=== PATIENT | female | born 1965 | race American Indian/Alaskan Native ===

== ENCOUNTER 2017-06-28 18:47 | Emergency (ER) | payer MEDICAID ==
[2017-06-29] MEDS ORDERED: CLEOCIN 900 MG/50 mL 900 MG/50 ML BAG IV ONE (01:32)
[2017-06-29] MEDS ORDERED: NACL 0.9% 1000 ML 1,000 ML IV ONE (01:32)
[2017-06-29] MEDS ORDERED: FLAGYL 500 MG/100 ML 500 MG/100 ML BAG IV SCH (02:00)
[2017-06-29 02:17] LABS: Basophils % (Auto) 0.3 % (0.0-1.8); Eosinophils % (Auto) 0.7 % (0.0-4.3); Hematocrit 35.4 % (30.3-42.9); Hemoglobin 12.1 gm/dl (10.1-14.3); Mean Corpuscular HGB Conc 34 % (30-34); Mean Corpuscular Hemoglobin 33 pg (28-32); Mean Corpuscular Volume 96 fl (79-97); Platelet Count 194 K/mm3 (140-440); Red Blood Count 3.68 M/mm3 (3.65-5.03); Red Cell Distribution Width 13.2 % (13.2-15.2); White Blood Count 12.1 K/mm3 (4.5-11.0)
[2017-06-29 02:23] LABS: Albumin 3.8 g/dL (3.9-5); Albumin/Globulin Ratio 1.1 %; Alkaline Phosphatase 197 units/L (35-129); Blood Urea Nitrogen 12 mg/dL (7-17); Calcium 8.9 mg/dL (8.4-10.2); Carbon Dioxide 20 mmol/L (22-30); Chloride 95.4 mmol/L (98-107); Glucose 90 mg/dL (65-100); Sodium 133 mmol/L (137-145); Total Protein 7.2 g/dL (6.3-8.2)
[2017-06-29 02:48] LABS: Alanine Aminotransferase 59 units/L (7-56); Anion Gap 22 mmol/L; Potassium 4.7 mmol/L (3.6-5.0)
--- NOTE | 2017-06-29 04:02 | Cat Scan Report ---
FINAL REPORT EXAM: CT FACIAL BONES W CON HISTORY: dental abscess with facial swelling TECHNIQUE: Routine imaging was obtained of the facial bones following intravenous injection of IV contrast. Coronal and sagittal reconstructions were obtained. FINDINGS: There is soft tissue swelling and subcutaneous edema overlying the anterior wall of the left max sinus extending to the hard palate. There is a 7.2 millimeter by 14.5 millimeter low-density area abutting the left side of the hard palate adjacent to left upper 1st and 2nd incisors. This compatible with a small abscess. No definite erosive changes of the hard palate is seen. There are though apical lucencies associated with both left upper incisors. The sinuses reveal extensive mucosal thickening and secretions in the left maxillary sinus. The remaining sinuses are clear. The intraorbital structures are well-maintained. There is several small benign-appearing lymph nodes in the internal jugular chains bilaterally. IMPRESSION: Small subcutaneous abscess abutting the left side of the hard palate adjacent to the left upper 1st and 2nd incisors as described along with generalized cellulitis. Apical lucencies involving both the 1st and 2nd left upper incisors compatible with underlying dental disease. No evidence of osteomyelitis involving the hard palate. Left maxillary sinusitis.
--- NOTE | 2017-06-29 04:42 | Emergency Department Report ---
ED General Adult HPI - General Chief complaint: Dental/Oral Stated complaint: LT SIDE FACIAL SWELLING Time Seen by Provider: 06/29/17 01:29 Source: patient Mode of arrival: Ambulatory Limitations: No Limitations - History of Present Illness Initial comments: pt is a 52 y/o aaf with hx of infected dental carries x 1 yr who presents for left sided dental and facial swelling and x 2 days pt denies fever no chill no n /v pt is tolerating po intake , symptoms pain , hot and cold sensitivity , pain is rated 5/10 aching , pain exacerbated palpation and hot/cold stimuli. Pt advised she no longer has insurance to see dentist. Onset/Timin -: year(s) Location: face Radiation: non-radiation Severity scale (0 -10): 5 Quality: aching, sharp Consistency: constant Improves with: none Worsens with: other (cold and hot stimuli ) Associated Symptoms: denies: fever/chills Treatments Prior to Arrival: none, other (none) - Related Data Previous Rx's Medication Instructions Recorded Last Taken Type Clindamycin [Clindamycin CAP] 300 mg PO Q6H #40 capsule 06/29/17 Unknown Rx metroNIDAZOLE [Flagyl] 500 mg PO Q12HR #14 tab 06/29/17 Unknown Rx traMADol [Ultram] 50 mg PO Q6HR PRN #20 tablet 06/29/17 Unknown Rx Allergies Allergy/AdvReac Type Severity Reaction Status Date / Time No Known Allergies Allergy Verified 06/28/17 20:11 ED Review of Systems ROS: Stated complaint: LT SIDE FACIAL SWELLING Other details as noted in HPI Constitutional: denies: chills, fever Eyes: denies: eye pain, eye discharge, vision change ENT: dental pain Respiratory: denies: cough, orthopnea, shortness of breath, stridor, wheezing Cardiovascular: denies: chest pain, palpitations Endocrine: no symptoms reported Gastrointestinal: denies: abdominal pain, nausea, diarrhea Genitourinary: denies: urgency, dysuria, discharge Musculoskeletal: denies: back pain, joint swelling, arthralgia Skin: denies: rash, lesions Psychiatric: denies: anxiety, depression Hematological/Lymphatic: denies: easy bleeding, easy bruising ED Past Medical Hx - Past Medical History Previous Medical History?: Yes Hx Asthma: Yes - Surgical History Past Surgical History?: Yes Additional Surgical History: C SECTION / COLON SURGERY - Social History Smoking Status: Current Every Day Smoker Substance Use Type: Alcohol - Medications Home Medications: Home Medications Medication Instructions Recorded Confirmed Last Taken Type Clindamycin [Clindamycin CAP] 300 mg PO Q6H #40 capsule 06/29/17 Unknown Rx metroNIDAZOLE [Flagyl] 500 mg PO Q12HR #14 tab 06/29/17 Unknown Rx traMADol [Ultram] 50 mg PO Q6HR PRN #20 tablet 06/29/17 Unknown Rx ED Physical Exam - General Limitations: No Limitations General appearance: alert, in no apparent distress - Head Head exam: Present: atraumatic, normocephalic, normal inspection - Eye Eye exam: Present: normal appearance, PERRL, EOMI - ENT ENT exam: Present: mucous membranes moist, TM's normal bilaterally, normal external ear exam - Expanded ENT Exam Expanded Mouth exam: Present: tongue normal. Absent: drooling, trismus, muffled voice, tongue elevation Teeth exam: Present: dental caries, dental tenderness # - Neck Neck exam: Present: normal inspection, full ROM, lymphadenopathy. Absent: thyromegaly - Expanded Neck Exam Expanded Neck exam: Absent: midline deformity, anterior neck swelling, thyroid mass, carotid bruit, tracheal deviation - Respiratory Respiratory exam: Present: normal lung sounds bilaterally. Absent: respiratory distress, wheezes, rales, rhonchi, stridor, chest wall tenderness - Cardiovascular Cardiovascular Exam: Present: regular rate, normal rhythm. Absent: systolic murmur, diastolic murmur, rubs, gallop - GI/Abdominal GI/Abdominal exam: Present: soft, normal bowel sounds - Rectal Rectal exam: Present: deferred - Extremities Exam Extremities exam: Present: normal inspection - Back Exam Back exam: Present: normal inspection - Neurological Exam Neurological exam: Present: alert, oriented X3, normal gait, reflexes normal - Psychiatric Psychiatric exam: Present: normal affect, normal mood - Skin Skin exam: Present: warm, dry, intact, normal color. Absent: rash ED Course Vital Signs 06/28/17 20:12 Temperature 99.4 F Pulse Rate 109 H Respiratory 22 Rate Blood Pressure 147/85 O2 Sat by Pulse 97 Oximetry ED Medical Decision Making - Lab Data Result diagrams: 06/29/17 01:45 06/29/17 01:45 Laboratory Tests 06/29/17 06/29/17 01:45 01:45 WBC 12.1 H RBC 3.68 Hgb 12.1 Hct 35.4 MCV 96 MCH 33 H MCHC 34 RDW 13.2 Plt Count 194 Lymph % (Auto) 15.7 Mcdowell % (Auto) 8.6 H Eos % (Auto) 0.7 Baso % (Auto) 0.3 Lymph # 1.9 Mcdowell # 1.0 H Eos # 0.1 Baso # 0.0 Seg Neutrophils % 74.7 H Seg Neutrophils # 9.0 H Sodium 133 L Potassium 4.7 Chloride 95.4 L Carbon Dioxide 20 L Anion Gap 22 BUN 12 Creatinine 0.5 L Estimated GFR > 60 BUN/Creatinine Ratio 24.00 Glucose 90 Calcium 8.9 Total Bilirubin 0.50 AST 124 H ALT 59 H Alkaline Phosphatase 197 H Total Protein 7.2 Albumin 3.8 L Albumin/Globulin Ratio 1.1 - Radiology Data Radiology results: report reviewed small subcutaneous abscess on left side,of palate adjacent to incisors 1 and 2 with some generalized cellulitis , no osteomyelitis , left maxillary sinusitis - Medical Decision Making pt is a 52 y/o aaf with hx of infected dental carries x 1 yr who presents for left sided dental and facial swelling and x 2 days pt denies fever no chill no n /v pt is tolerating po intake , symptoms pain , hot and cold sensitivity , pain is rated 5/10 aching , pain exacerbated palpation and hot/cold stimuli. Pt advised she no longer has insurance to see dentist. exam: pt appear well head: moderate left side facial and gum swelling no focal abscess, , ENT: tms clear bilat, nose patent no obstruction, sinus: left maxillary sinus swelling pain to touch no drainage no erythema, ,pharynx: mild erythema no swelling no exudate uvula midline no stridor gum: mild erythem to 12&13 no focal abscess , no palpable facial abscess collection, lung are clear pt is tolerating po intake without dysphagia, CT: small abcess dental , and left Maxillary sinusitis ,labs , noted: ed tx: clindamycin 900 mg ivpb, Flagyl 500 mg Ivpb, NS: 1 liter , pt advises that symptoms are improved, pt tolerating po at this time. plan: Clindamycin , Flagyl , follow up with [facility] pt will call on saturday to setup appointment, dicussed importance of follow up with oral surgery as direct, pt verbalized agreement and understanding of discharge plan. pt given strict instructions to return to emergency if symptoms worsen Critical care attestation.: If time is entered above; I have spent that time in minutes in the direct care of this critically ill patient, excluding procedure time. ED Disposition Clinical Impression: Dental abscess Sinusitis Qualifiers: Sinusitis location: maxillary Chronicity: acute Recurrence: recurrent Qualified Code(s): J01.01 - Acute recurrent maxillary sinusitis Disposition: TO HOME OR SELFCARE Is pt being admited?: No Does the pt Need Aspirin: No Condition: Stable Instructions: Dental Abscess (ED), Sinusitis (ED) Additional Instructions: [facility]: [phone] Prescriptions: Clindamycin [Clindamycin CAP] 300 mg PO Q6H #40 capsule metroNIDAZOLE [Flagyl] 500 mg PO Q12HR #14 tab traMADol [Ultram] 50 mg PO Q6HR PRN #20 tablet PRN Reason: Pain Referrals: PRIMARY CARE, [Primary Care Provider] - 3-5 Days Forms: Work/School Release Form(ED) Time of Disposition: 05:09
[2017-06-29 05:21] VITALS: BP 126/80
== END 2017-06-29 05:21 | disposition home or self-care (01) ==
LOC: ED 18:47
DX: J01.01 Acute recurrent maxillary sinusitis (principal); K04.7 Periapical abscess without sinus; J45.909 Unspecified asthma, uncomplicated; F17.200 Nicotine dependence, unspecified, uncomplicated
CPT/HCPCS: 36415; 70487; 80053; 85025; 96365; 96367; 99284; J7030; Q9967

== ENCOUNTER 2018-11-18 15:11 | Emergency (ER) | payer MEDICAID ==
--- NOTE | 2018-11-18 15:54 | Emergency Department Report ---
Upper Extremity - HPI Chief Complaint: Extremity Injury, Upper Stated Complaint: SWOLLEN THUMB Time Seen by Provider: 11/18/18 15:46 Upper Extremity: Right Thumb (swollen and tender for the last 2-3 days. ) Severity: mild Symptoms: Yes Pain with Movement, Yes Swelling, No Weakness, No Laceration or Abrasion ED Review of Systems ROS: Stated complaint: SWOLLEN THUMB Other details as noted in HPI Constitutional: denies: chills, fever Eyes: denies: eye pain, eye discharge, vision change ENT: denies: ear pain, throat pain Respiratory: denies: cough, shortness of breath, wheezing Cardiovascular: denies: chest pain, palpitations Endocrine: no symptoms reported Gastrointestinal: denies: abdominal pain, nausea, diarrhea Genitourinary: denies: urgency, dysuria, discharge Musculoskeletal: denies: back pain, joint swelling, arthralgia Skin: denies: rash, lesions Neurological: denies: headache, weakness, paresthesias Psychiatric: denies: anxiety, depression Hematological/Lymphatic: denies: easy bleeding, easy bruising ED Past Medical Hx - Past Medical History Hx Asthma: Yes - Surgical History Additional Surgical History: C SECTION / COLON SURGERY. hysterectomy - Social History Smoking Status: Current Every Day Smoker Substance Use Type: None - Medications Home Medications: Home Medications Medication Instructions Recorded Confirmed Last Taken Type ALBUTEROL Inhaler(NF) [VENTOLIN 1 puff IH Q4HR PRN #1 inha 08/28/18 Unknown Rx Inhaler(NF)] Benzonatate [Tessalon Perles] 100 mg PO Q8HR PRN #20 capsule 08/28/18 Unknown Rx predniSONE [Prednisone] 50 mg PO DAILY #5 tablet 08/28/18 Unknown Rx traMADol [Ultram] 50 mg PO Q6HR PRN #7 tablet 08/28/18 Unknown Rx Clindamycin [Clindamycin CAP] 150 mg PO Q8HR #40 capsule 11/18/18 Unknown Rx Ketorolac [Toradol] 10 mg PO Q6H PRN #20 tablet 11/18/18 Unknown Rx Upper Extremity Exam - Exam General: Vital signs noted. No distress. Alert and acting appropriately. Head and Torso: No HEENT Abnormality, No Neck Tenderness, No Chest/Lungs Abnormality, No Abdominal Tenderness, No Back Tenderness Shoulder Exam: Yes Normal Range of Motion in Shoulder, No Shoulder Tenderness, No Clavicle Tenderness, No Shoulder Deformity, No AC Joint Tenderness Arm Exam: No Arm/Humerus Tenderness, No Arm Deformity Elbow: No Elbow Tenderness, No Normal Range of Motion in Elbow, No Elbow Deformity Forearm: No Forearm Tenderness, No Forearm Deformity, No Pain with Pronation, No Pain with Supination Wrist: Yes Normal ROM in Wrist, No Wrist Tenderness, No Wrist Deformity, No Snuffbox Tenderness, No Pain with Axial Thumb Compression Hand: Yes Hand Tenderness (right thumb red and swollen . pain with flexion. swellin to pad of thumb but no abscess. early paronychia forming. redness noted. ), Yes Normal ROM in Digit(s), No Hand Deformity, No Digit Tenderness, No Digit(s) Deformity, No Tendon Dysfunction CMS Exam: No Broken Skin, No Normal Distal Pulses, No Normal Capillary Refill, N o Normal Distal Sensation ED Course Vital Signs 11/18/18 15:38 Temperature 98 F Pulse Rate 95 H Respiratory 16 Rate Blood Pressure 118/78 O2 Sat by Pulse 99 Oximetry ED Medical Decision Making - Differential Diagnosis paronychia, felon, infections tenosynovitis Critical care attestation.: If time is entered above; I have spent that time in minutes in the direct care of this critically ill patient, excluding procedure time. ED Disposition Clinical Impression: Thumb pain, Cellulitis, finger Disposition: DC-01 TO HOME OR SELFCARE Is pt being admited?: No Does the pt Need Aspirin: No Condition: Stable Instructions: Cellulitis (ED) Additional Instructions: finger recheck in 48 hours as discussed. Prescriptions: Clindamycin [Clindamycin CAP] 150 mg PO Q8HR #40 capsule Ketorolac [Toradol] 10 mg PO Q6H PRN #20 tablet PRN Reason: Pain Referrals: [facility] [Provider Group] - 3-5 Days
== END 2018-11-18 16:11 | disposition home or self-care (01) ==
LOC: ED 15:11
CPT/HCPCS: 99282